=== PATIENT | male | born 1995 | race Two or more races ===

== ENCOUNTER 2021-10-21 09:27 | Emergency (ER) | payer MEDICAID ==
[~2021-10-21] VITALS: Ht 172.7 cm; Wt 84.0 kg
[2021-10-21] MEDS ORDERED: ONDANSETRON HCL 4MG/2ML INJ IV STA (10:39)
[2021-10-21] MEDS ORDERED: MECLIZINE 25MG TABLET PO ONE (10:45)
[2021-10-21] MEDS ORDERED: SODIUM CHLORIDE 0.9% 1,000 ML IV ONE (10:45)
[2021-10-21 11:17] LABS: BASOPHILS % 0.2 % (0.0-2.0); EOSINOPHILS % 0.8 % (0.0-5.0); HEMATOCRIT. 41.1 % (42.0-52.0); HEMOGLOBIN. 13.4 g/dL (14.0-18.0); LYMPHOCYTES % 21.7 % (20.0-50.0); MEAN CORPUSCULAR HEMOGLOBIN 27.6 pg (28.0-32.0); MEAN CORPUSCULAR VOLUME 84.6 fL (80.0-94.0); MEAN PLATELET VOLUME 8.5 fl (7.4-10.4); MONOCYTES % 9.7 % (2.0-8.0); NEUTROPHILS % 67.6 % (40.0-76.0); PLATELET 313 x1000/uL (130-400); RED BLOOD CELL COUNT 4.85 mill/uL (4.7-6.1); RED CELL DISTRIBUTION WIDTH 13.1 % (11.6-14.6)
[2021-10-21 11:22] LABS: CHLORIDE 107 mEq/L (98-107)
[2021-10-21 11:26] LABS: *AMPHETAMINES SCREEN URINE NEGATIVE (NEGATIVE); CANNABINOID URINE SCREEN PRESUMTIVE POSITIVE (NEGATIVE)
[2021-10-21 11:27] LABS: *BARBITURATES SCREEN URINE NEGATIVE (NEGATIVE); *BENZODIAZEPINES SCREEN URINE NEGATIVE (NEGATIVE); *COCAINE SCREEN URINE NEGATIVE (NEGATIVE); METHADONE URINE SCREEN NEGATIVE (NEGATIVE); OPIATES URINE SCREEN NEGATIVE (NEGATIVE)
[2021-10-21 11:28] LABS: PHENCYCLIDINE URINE SCREEN NEGATIVE (NEGATIVE)
[2021-10-21 11:33] LABS: ETHANOL BLOOD < 10 mg/dL
[2021-10-21] MEDS ORDERED: ONDA4TAB11 PO (14:05)
[2021-10-21] MEDS ORDERED: MECL-159 MT (14:05)
[2021-10-21 16:30] VITALS: BP 124/70
== END 2021-10-21 17:23 | disposition short-term general hospital (02) ==
LOC: ER 09:27
DX: R42 Dizziness and giddiness (principal)
CPT/HCPCS: 36415; 70450; 71045; 80053; 80305; 80320; 83690; 83880; 84484; 85025; 93005; 96361; 96374; 99285; J2405; J7030; J8597; Z7610; G0480

== ENCOUNTER 2022-01-29 08:46 | Emergency (ER) | payer MEDICAID ==
[~2022-01-29] VITALS: Ht 167.6 cm; Wt 100.0 kg
[~2022-01-29 08:46] MED LIST: MECL-159 MT; ONDA4TAB11 PO
[2022-01-29 08:48] VITALS: BP 141/78
== END 2022-01-29 09:24 | disposition home or self-care (01) ==
LOC: ER 08:46
DX: M25.561 Pain in right knee (principal); V43.02XA Car driver injured in collision with other type car in nontraffic accident, initial encounter; Y93.89 Activity, other specified; Y92.410 Unspecified street and highway as the place of occurrence of the external cause
CPT/HCPCS: 99283